=== PATIENT | male | born 1990 | race African-American/Black ===

== ENCOUNTER 2017-12-15 14:40 | Emergency (ER) | payer MEDICAID ==
[~2017-12-15] VITALS: Ht 170.2 cm; Wt 72.6 kg
[2017-12-15 15:06] VITALS: BP 152/105
[2017-12-15] MEDS ORDERED: KETOROLAC TROMETH 60MG/2ML VIAL IM ONE (15:30)
== END 2017-12-15 15:35 | disposition home or self-care (01) ==
LOC: ER 14:40
DX: G89.29 Other chronic pain (principal); M54.5 Low back pain; I10 Essential (primary) hypertension
CPT/HCPCS: 96372; 99283; J1885